=== PATIENT | female | born 1995 | race Caucasian/White ===

== ENCOUNTER 2018-01-13 17:35 | Emergency (ER) | payer MEDICAID, OTHER ==
[2018-01-13 17:46] VITALS: BP 120/78
[2018-01-13] MEDS ORDERED: HYDROXYZINE PAMOATE 25 MG CAPSULE (4 CAP/ER DISP) PO PRN (18:13)
[2018-01-13] MEDS ORDERED: PREDNISONE 20 MG TABLET PO ONE (18:16)
--- NOTE | 2018-01-13 18:18 | ER Document Report ---
ED General - General Chief Complaint: Allergic Reaction Stated Complaint: POSSIBLE ALLERGIC REACTION Time Seen by Provider: 01/13/18 18:13 TRAVEL OUTSIDE OF THE [place] IN LAST 30 DAYS: No - HPI Patient complains to provider of: Allergic reaction Notes: Patient coming in for allergic reaction. States ongoing for approximate last 48 hours states that she was seen in the ER in [place] is that they are currently traveling from [place] to [place]. Patient states the ER in [place] has placed her on prednisone gave her Benadryl patient states continues to have hives she had just recently restarted taking Keppra and a control medication patient states that she does continue to take these medications today continues to have her symptoms. Patient states she also did not fill the prednisone given to her by the ER in [place]. Patient otherwise denies any fever chills nausea vomiting diarrhea. - Related Data Allergies/Adverse Reactions: latex [Latex] Allergy (Mild, Verified 01/21/14 12:27) rash tree nuts Allergy (Severe, Uncoded 01/21/14 12:27) Swelling of Throat Past Medical History - Social History Smoking Status: Never Smoker Chew tobacco use (# tins/day): No Frequency of alcohol use: Occasional Drug Abuse: None Family History: Reviewed & Not Pertinent Patient has suicidal ideation: No Patient has homicidal ideation: No Neurological Medical History: Reports: Hx Seizures Renal/ Medical History: Denies: Hx Peritoneal Dialysis Past Surgical History: Reports: Hx Orthopedic Surgery - L shoulder Review of Systems - Review of Systems Constitutional: No symptoms reported EENT: No symptoms reported Cardiovascular: No symptoms reported Respiratory: No symptoms reported Gastrointestinal: No symptoms reported Genitourinary: No symptoms reported Female Genitourinary: No symptoms reported Musculoskeletal: No symptoms reported Skin: Rash Hematologic/Lymphatic: No symptoms reported Neurological/Psychological: No symptoms reported -: Yes All other systems reviewed and negative Physical Exam - Vital signs Vitals: Temp Pulse Resp BP Pulse Ox 98.4 F 76 18 120/78 99 01/13/18 17:45 01/13/18 17:45 01/13/18 17:45 01/13/18 17:45 01/13/18 17:45 Interpretation: Normal - General General appearance: Appears well, Alert - HEENT Head: Normocephalic, Atraumatic Eyes: Normal Pupils: PERRL - Respiratory Respiratory status: No respiratory distress Chest status: Nontender Breath sounds: Normal Chest palpation: Normal - Cardiovascular Rhythm: Regular Heart sounds: Normal auscultation Murmur: No - Abdominal Inspection: Normal Distension: No distension Bowel sounds: Normal Tenderness: Nontender Organomegaly: No organomegaly - Back Back: Normal, Nontender - Extremities General upper extremity: Normal inspection, Nontender, Normal color, Normal ROM , Normal temperature General lower extremity: Normal inspection, Nontender, Normal color, Normal ROM , Normal temperature, Normal weight bearing. No: Pelon's sign - Neurological Neuro grossly intact: Yes Cognition: Normal Orientation: AAOx4 Jaden Coma Scale Eye Opening: Spontaneous [place] Coma Scale Verbal: Oriented [place] Coma Scale Motor: Obeys Commands [place] Coma Scale Total: 15 Speech: Normal Motor strength normal: LUE, RUE, LLE, RLE Sensory: Normal - Psychological Associated symptoms: Normal affect, Normal mood - Skin Skin Temperature: Warm Skin Moisture: Dry Skin Color: Other - Blanchable areas on the patient's chest consistent with hives. There are no lesions intraorally Course - Re-evaluation Re-evalutation: 01/13/18 20:39 Patient concerned about Saud Penny states that she does have lesions in her oral mucosal however on my examination I cannot find any. Patient was examination is more consistent with acute allergic reaction is that she does have hives. Recommend patient continue with Benadryl and/or Atarax prescribed I will give the patient a dose of steroids today patient is to fill her steroids that were given to her by the previous ER. I did recommend the patient stop her control is that this is the newest medication patient states that she has been on Keppra in the past without any issue. Patient states understanding discharged home - Vital Signs Vital signs: Temp Pulse Resp BP Pulse Ox 98.4 F 76 18 120/78 99 01/13/18 17:45 01/13/18 17:45 01/13/18 17:45 01/13/18 17:45 01/13/18 17:45 Discharge - Discharge Clinical Impression: Allergic reaction Qualifiers: Encounter type: initial encounter Qualified Code(s): T78.40XA - Allergy, unspecified, initial encounter Condition: Good Disposition: HOME, SELF-CARE Instructions: Acute Allergic Reaction ([facility]), Family Physicians / Practices, Ob- Analytical Technician Doctors Additional Instructions: Your evaluation is consistent with allergic reaction. With recently starting a new control medication and do believe this is the reason why you are having allergic reaction. At this time his physical evaluation does not reveal any signs of significant infection or significant skin reaction. I recommend to continue with the steroids as previously prescribed. I will prescribe you a stronger antihistamine called Atarax. sHe may take 25-50 mg of this q. 6 as needed for itching. Prescriptions: Hydroxyzine HCl [Atarax 25 mg Tablet] 1 - 2 tab PO QID #30 tablet Referrals: LOCALMD,NO [NO LOCAL MD] - Follow up as needed
== END 2018-01-13 18:36 | disposition home or self-care (01) ==
LOC: ER 17:35
DX: L50.0 Allergic urticaria (principal); R56.9 Unspecified convulsions; Z91.040 Latex allergy status; Z91.018 Allergy to other foods
CPT/HCPCS: 99283; J3490; J7512